=== PATIENT | male | born 1945 | race Hispanic/Latino ===

== ENCOUNTER 2020-08-14 17:55 | Emergency (ER) | payer MEDICARE ==
[~2020-08-14] VITALS: Ht 162.6 cm; Wt 60.3 kg
--- NOTE | 2020-08-14 18:06 | Emergency Department Note ---
History of Present Illnes History of Present Illness Chief Complaint: General Medicine Complaints History of Present Illness This is a 75 year old male presents to the ED after he tripped and fell onto his face with resultant R chest wall pain. Denies LOC or n/v . Onset (how long ago): minute(s) Radiation: Reports non-radiation Severity: moderate Onset quality: sudden Duration (how long): hour(s) Timing of current episode: constant Progression: worsening Chronicity: new Context: Reports trauma/injury Relieving factors: rest Exacerbating factors: movement Associated symptoms: Reports chest pain Treatments prior to arrival: none Past Medical/Family History Physician Review I have reviewed the patient's past medical and family history. Any updates have been documented here. Past Medical History Recent Fever: No Clinical Suspicion of Infectio: No New/Unexplained Change in Ment: No Past Medical History: None Past Surgical History: None Social History Smoking Cessation: Never Smoker Alcohol Use: None Any Illegal Drug Use: No Review of Systems Review of Systems Constitutional: Reports no symptoms EENTM: Reports no symptoms Cardiovascular: Reports chest pain Respiratory: Reports no symptoms Gastrointestinal: Reports no symptoms Genitourinary: Reports no symptoms Musculoskeletal: Reports no symptoms Integumentary: Reports no symptoms Neurological: Reports no symptoms Psychological: Reports no symptoms Endocrine: Reports no symptoms Hematological/Lymphatic: Reports no symptoms Physical Exam Related Data Allergies: Coded Allergies: amoxicillin (Verified Allergy, Intermediate, rash, 08/14/20) Triage Vital Signs Vital Signs Date Time Temp Pulse Resp B/P (MAP) Pulse Ox O2 Delivery O2 Flow Rate FiO2 08/14/20 18:00 97.8 73 17 179/83 100 Room Air Vital signs reviewed: Yes Physical Exam CONSTITUTIONAL Constitutional: Present well-developed, Present well-nourished HENT HENT: Present other (1 CM R ear laceration) HENT L/R: Present left ext ear normal, Present right ext ear normal EYES Eyes: Reports PERRL, Reports conjunctivae normal NECK Neck: Present ROM normal PULMONARY Pulmonary: Present chest tenderness (Right sided wall) CARDIOVASCULAR Cardiovascular: Present regular rhythm, Present heart sounds normal, Present capillary refill normal, Present normal rate GASTROINTESTINAL Abdominal: Present soft, Present nontender, Present bowel sounds normal GENITOURINARY Genitourinary: Present exam deferred SKIN Skin: Present warm, Present dry MUSCULOSKELETAL Musculoskeletal: Present ROM normal NEUROLOGICAL Neurological: Present alert, Present oriented x 3, Present no gross motor or sensory deficits PSYCHOLOGICAL Psychological: Present mood/affect normal, Present judgement normal Results Laboratory Lab results reviewed: Yes Laboratory comments Laboratory Tests Test 08/14/20 22:13 White Blood Count 9.23 x10e3/uL (4.8-10.8) Red Blood Count 4.10 x10e6/uL (4.3-5.7) Hemoglobin 13.1 g/dL (14.0-18.0) Hematocrit 38.4 % (38.2-49.6) Mean Corpuscular Volume 93.7 fL (81-99) Mean Corpuscular Hemoglobin 32.0 pg (28-32) Mean Corpuscular Hemoglobin Concent 34.1 g/dL (31-35) Red Cell Distribution Width 12.7 % (11.7-14.4) Platelet Count 205 x10e3/uL (140-360) Neutrophils (%) (Auto) 75.5 % (38.7-80.0) Lymphocytes (%) (Auto) 13.3 % (18.0-39.1) Monocytes (%) (Auto) 10.4 % (4.4-11.3) Eosinophils (%) (Auto) 0.4 % (0.0-6.0) Basophils (%) (Auto) 0.2 % (0.0-1.0) Neutrophils # (Auto) 7.0 (2.1-6.9) Lymphocytes # (Auto) 1.2 (1.0-3.2) Monocytes # (Auto) 1.0 (0.2-0.8) Eosinophils # (Auto) 0.0 (0.0-0.4) Basophils # (Auto) 0.0 (0.0-0.1) Absolute Immature Granulocyte (auto 0.02 x10e3/uL (0-0.1) Sodium Level 132 mmol/L (136-145) Potassium Level 4.1 mmol/L (3.5-5.1) Chloride Level 97 mmol/L (98-107) Carbon Dioxide Level 27 mmol/L (22-29) Anion Gap 12.1 mmol/L (8-16) Blood Urea Nitrogen 14 mg/dL (7-26) Creatinine 1.37 mg/dL (0.72-1.25) Estimat Glomerular Filtration Rate 51 ML/MIN (60-) BUN/Creatinine Ratio 10 (6-25) Glucose Level 91 mg/dL (74-118) Calcium Level 8.7 mg/dL (8.4-10.2) Total Bilirubin 0.6 mg/dL (0.2-1.2) Aspartate Amino Transf (AST/SGOT) 33 IU/L (5-34) Alanine Aminotransferase (ALT/SGPT) 19 IU/L (0-55) Alkaline Phosphatase 97 IU/L (40-150) Total Protein 7.3 g/dL (6.5-8.1) Albumin 4.3 g/dL (3.5-5.0) Globulin 3.0 g/dL (2.3-3.5) Albumin/Globulin Ratio 1.4 (0.8-2.0) Imaging Imaging results reviewed: Yes Impressions [place] [address] Patient Name: JONO DUQUE MR #: [id number] : 1945 Age/Sex: 75/M Req #: [id number] Adm Physician: Ordered by: ROSCOE MEDINA DO Report #: [id number] Location: ER Room/Bed: Procedure: [id number] CT/CT BRAIN WO Exam Date: 08/14/20 Exam Time: 0 REPORT STATUS: Signed History: Trauma Comparison studies: None Technique: Axial images were obtained from the skull base to the vertex. Coronal and sagittal reconstructions obtained from the axial data. Dose modulation, iterative reconstruction, and/or weight based adjustment of the mA/kV was utilized to reduce the radiation dose to as low as reasonably achievable. Intravenous contrast: None Findings: Scalp/skull: No abnormalities. No fractures, blastic or lytic lesions. Extra-axial spaces: No masses. No fluid collections. Brain sulci: Appropriate for age. Ventricles: Normal in size and configuration. No hydrocephalus. Parenchyma: No abnormal densities. No masses, hemorrhage, acute or chronic cortical vascular insults. Sellar/suprasellar region: No abnormalities Craniocervical junction: Patent foramen magnum. No Chiari one malformation. Incidental findings: None. IMPRESSION: No abnormalities. Signed by: Dr. Iker Tidwell M.D. on 08/14/2020 8:22 PM Dictated By: IKER TIDWELL MD, MD 21 Transcribed By: PHILLIP on 08/14/202021 COPY TO: ROSCOE MEDINA DO~ [place] [address] Patient Name: JONO DUQUE MR #: [id number] : 1945 Age/Sex: 75/M Req #: [id number] Adm Physician: Ordered by: ROSCOE MEDINA DO Report #: [id number] Location: ER Room/Bed: Procedure: [id number] CT/CT CERVICAL SPINE WO Exam Date: 08/14/20 Exam Time: 1849 REPORT STATUS: Signed History: Trauma Comparison studies: None Technique: Axial images were obtained through the cervical region.. Coronal and sagittal images reconstructed from the axial data. Dose modulation, iterative reconstruction, and/or weight based adjustment of the mA/kV was utilized to reduce the radiation dose to as low as reasonably achievable. Intravenous contrast: None Findings: Soft tissues: Incidental atherosclerotic calcifications in the aortic arch. Atlantoaxial articulation: Intact. Alignment: Straightening of the usual lordosis is centered at C4-5. No scoliosis. Cervicomedullary junction: No abnormalities. The foramen magnum is patent. Vertebrae: Bones mildly demineralized. No infection or neoplasm. Degenerative changes: * Mildly degenerated disc at C3-4, moderate from C4 to C7. * Facet arthrosis throughout the cervical region, worse on the left at C2-3 and bilaterally at C7-T1. * Mild spinal canal stenosis from C4 to C6 due to disc osteophyte complexes. * Foraminal stenosis, moderate right at C3-4, bilaterally at C4-5, on the right at C5-6 and C6-7 due to facet and uncoarthrosis. IMPRESSION: 1. No acute abnormalities. 2. Specifically, no fractures or subluxations. 3. Cannot adequately evaluate for ligament, spinal cord and or vascular abnormalities. 4. Degenerative changes as described Signed by: Dr. Iker Tidwell M.D. on 08/14/2020 8:25 PM Dictated By: IKER TIDWELL MD, MD 24 Transcribed By: PHILLIP on 08/14/202024 COPY TO: ROSCOE MEDINA DO~ [place] [address] Patient Name: JONO DUQUE MR #: [id number] : 1945 Age/Sex: 75/M Req #: [id number] [facility] Physician: Ordered by: ROSCOE MEDINA DO Report #: [id number] Location: ER Room/Bed: Procedure: [id number] CT/CT ABDOMEN/PELVIS WO Exam Date: 08/14/20 Exam Time: 1850 REPORT STATUS: Signed EXAM: CT Chest, Abdomen and Pelvis without contrast INDICATION: Status post fall. COMPARISON: None. TECHNIQUE: Chest, abdomen and pelvis were scanned utilizing a multidetector helical scanner from the lung apex to the pubic symphysis after administration of IV contrast. Coronal and sagittal reformations were obtained. Routine protocol was performed. Scan was performed when during portal venous phase. IV CONTRAST: 100 mL of Isovue 370 ORAL CONTRAST: None COMPLICATIONS: None RADIATION DOSE: Total DLP: 1564.74 mGy*cm Estimated effective dose: (DLP x 0.015 x size factor) mSv CTDIvol has been reviewed. It is below the limits set by the Radiation Protocol Committee (RPC). Dose modulation, iterative reconstruction, and/or weight based adjustment of the mA/kV was utilized to reduce the radiation dose to as low as reasonably achievable. FINDINGS: LINES and TUBES: None. LUNGS AND AIRWAYS: No focal consolidation or suspicious pulmonary nodule/mass. There is a solitary pleural-based bulla in the left lower lobe. Airways are normal. PLEURA: The pleural spaces are clear. HEART AND MEDIASTINUM: The thyroid gland is normal. No mediastinal, hilar or axillary lymphadenopathy. The heart is mildly enlarged with atherosclerotic calcification of the coronary vessels. There is no pericardial effusion. HEPATOBILIARY: There are multiple scattered too small to characterize hypodensities in the liver, likely benign. No biliary ductal dilation. GALLBLADDER: There are stones in the gallbladder. No wall thickening. SPLEEN: No splenomegaly. PANCREAS: No focal masses or ductal dilatation. ADRENALS: No adrenal nodules KIDNEYS/URETERS: No hydronephrosis. No cystic or solid mass lesions. 6 mm nonobstructive stone in the inferior pole of the right kidney. GI TRACT: No abnormal distention, wall thickening, or evidence of bowel obstruction. There are diverticula within the colon without evidence of diverticulitis. Appendix is normal. PELVIC ORGANS/BLADDER: Unremarkable. LYMPH NODES: No lymphadenopathy. VESSELS: Scattered mild arterial vascular calcifications. PERITONEUM / RETROPERITONEUM: Small amount of free fluid (47 Hounsfield unit) along the posterior inferior border of the right hepatic lobe. BONES: There is nondisplaced fracture of the right posterior 10th rib. There are degenerative changes in the spine. Focus of increased sclerosis in the right iliac wing most likely represents a bone island. SOFT TISSUES: Unremarkable. IMPRESSION: 1. Small amount of free fluid along the posterior inferior border of the right hepatic lobe which likely represents small retroperitoneal hematoma. The likely source is the inferior border of the right hepatic lobe, however, this is not well assessed due to lack of intravenous contrast. 2. Nondisplaced fracture of the right posterior 10th rib. 3. Mild cardiomegaly with atherosclerotic calcific and coronary vessels. 4. Nonobstructive right nephrolithiasis. 5. Diverticulosis coli without evidence of active inflammation. 6. Cholelithiasis without evidence of cholecystitis. Signed by: Leatha Calderon MD on 08/14/2020 8:48 PM Dictated By: LEATHA CALDERON MD 47 Transcribed By: PHILLIP on 08/14/202047 COPY TO: ROSCOE MEDINA DO~ Procedures Laceration Laceration: Laceration 1 Site: other (right ear) Side: right Size (cm): 1 Description: linear Depth: simple, single layer Skin layer closed with: other Assessment & Plan Medical Decision Making MDM Diff Dx : Flail chest, pneumothorax, hemothorax, Intracranial brain trauma, SDH, SAH, epidural hematoma, perforated abd viscus Assessment & Plan Final Impression: (1) Ear lobe laceration (2) Retroperitoneal bleed (3) Fracture, rib Depart Disposition: TRANS TO OTHER [facility] ROSCOE MEDINA DO Aug 14, 2020 18:06
[2020-08-14] MEDS ORDERED: HYDROCODONE/APAP 5MG-325MG TAB PO ONE (18:15)
--- NOTE | 2020-08-14 20:25 | Diagnostic Imaging Report ---
History: Trauma Comparison studies: None Technique: Axial images were obtained from the skull base to the vertex. Coronal and sagittal reconstructions obtained from the axial data. Dose modulation, iterative reconstruction, and/or weight based adjustment of the mA/kV was utilized to reduce the radiation dose to as low as reasonably achievable. Intravenous contrast: None Findings: Scalp/skull: No abnormalities. No fractures, blastic or lytic lesions. Extra-axial spaces: No masses. No fluid collections. Brain sulci: Appropriate for age. Ventricles: Normal in size and configuration. No hydrocephalus. Parenchyma: No abnormal densities. No masses, hemorrhage, acute or chronic cortical vascular insults. Sellar/suprasellar region: No abnormalities Craniocervical junction: Patent foramen magnum. No Chiari one malformation. Incidental findings: None. IMPRESSION: No abnormalities. Signed by: Dr. Iker Tidwell M.D. on 08/14/2020 8:22 PM
--- NOTE | 2020-08-14 20:28 | Diagnostic Imaging Report ---
History: Trauma Comparison studies: None Technique: Axial images were obtained through the cervical region.. Coronal and sagittal images reconstructed from the axial data. Dose modulation, iterative reconstruction, and/or weight based adjustment of the mA/kV was utilized to reduce the radiation dose to as low as reasonably achievable. Intravenous contrast: None Findings: Soft tissues: Incidental atherosclerotic calcifications in the aortic arch. Atlantoaxial articulation: Intact. Alignment: Straightening of the usual lordosis is centered at C4-5. No scoliosis. Cervicomedullary junction: No abnormalities. The foramen magnum is patent. Vertebrae: Bones mildly demineralized. No infection or neoplasm. Degenerative changes: * Mildly degenerated disc at C3-4, moderate from C4 to C7. * Facet arthrosis throughout the cervical region, worse on the left at C2-3 and bilaterally at C7-T1. * Mild spinal canal stenosis from C4 to C6 due to disc osteophyte complexes. * Foraminal stenosis, moderate right at C3-4, bilaterally at C4-5, on the right at C5-6 and C6-7 due to facet and uncoarthrosis. IMPRESSION: 1. No acute abnormalities. 2. Specifically, no fractures or subluxations. 3. Cannot adequately evaluate for ligament, spinal cord and or vascular abnormalities. 4. Degenerative changes as described Signed by: Dr. Iker Tidwell M.D. on 08/14/2020 8:25 PM
--- NOTE | 2020-08-14 20:52 | Diagnostic Imaging Report ---
EXAM: CT Chest, Abdomen and Pelvis without contrast INDICATION: Status post fall. COMPARISON: None. TECHNIQUE: Chest, abdomen and pelvis were scanned utilizing a multidetector helical scanner from the lung apex to the pubic symphysis after administration of IV contrast. Coronal and sagittal reformations were obtained. Routine protocol was performed. Scan was performed when during portal venous phase. IV CONTRAST: 100 mL of Isovue 370 ORAL CONTRAST: None COMPLICATIONS: None RADIATION DOSE: Total DLP: 1564.74 mGy*cm Estimated effective dose: (DLP x 0.015 x size factor) mSv CTDIvol has been reviewed. It is below the limits set by the Radiation Protocol Committee (RPC). Dose modulation, iterative reconstruction, and/or weight based adjustment of the mA/kV was utilized to reduce the radiation dose to as low as reasonably achievable. FINDINGS: LINES and TUBES: None. LUNGS AND AIRWAYS: No focal consolidation or suspicious pulmonary nodule/mass. There is a solitary pleural-based bulla in the left lower lobe. Airways are normal. PLEURA: The pleural spaces are clear. HEART AND MEDIASTINUM: The thyroid gland is normal. No mediastinal, hilar or axillary lymphadenopathy. The heart is mildly enlarged with atherosclerotic calcification of the coronary vessels. There is no pericardial effusion. HEPATOBILIARY: There are multiple scattered too small to characterize hypodensities in the liver, likely benign. No biliary ductal dilation. GALLBLADDER: There are stones in the gallbladder. No wall thickening. SPLEEN: No splenomegaly. PANCREAS: No focal masses or ductal dilatation. ADRENALS: No adrenal nodules KIDNEYS/URETERS: No hydronephrosis. No cystic or solid mass lesions. 6 mm nonobstructive stone in the inferior pole of the right kidney. GI TRACT: No abnormal distention, wall thickening, or evidence of bowel obstruction. There are diverticula within the colon without evidence of diverticulitis. Appendix is normal. PELVIC ORGANS/BLADDER: Unremarkable. LYMPH NODES: No lymphadenopathy. VESSELS: Scattered mild arterial vascular calcifications. PERITONEUM / RETROPERITONEUM: Small amount of free fluid (47 Hounsfield unit) along the posterior inferior border of the right hepatic lobe. BONES: There is nondisplaced fracture of the right posterior 10th rib. There are degenerative changes in the spine. Focus of increased sclerosis in the right iliac wing most likely represents a bone island. SOFT TISSUES: Unremarkable. IMPRESSION: 1. Small amount of free fluid along the posterior inferior border of the right hepatic lobe which likely represents small retroperitoneal hematoma. The likely source is the inferior border of the right hepatic lobe, however, this is not well assessed due to lack of intravenous contrast. 2. Nondisplaced fracture of the right posterior 10th rib. 3. Mild cardiomegaly with atherosclerotic calcific and coronary vessels. 4. Nonobstructive right nephrolithiasis. 5. Diverticulosis coli without evidence of active inflammation. 6. Cholelithiasis without evidence of cholecystitis. Signed by: Christiano Orellana MD on 08/14/2020 8:48 PM
--- NOTE | 2020-08-14 20:56 | NUR ---
TRANSFER INITIATED TO [facility], SPOKE TO ELSY HUTCHINS RN
[2020-08-14] MEDS ORDERED: SODIUM CHLORIDE 0.9% 1000ML 1,000 ML IV SCH (21:00)
--- NOTE | 2020-08-14 22:15 | NUR ---
REPORT GIVEN TO [facility] NUMEROLOGIST
[2020-08-14 22:19] LABS: BASOPHILS % 0.2 % (0.0-1.0); EOSINOPHILS % 0.4 % (0.0-6.0); HEMATOCRIT 38.4 % (38.2-49.6); HEMOGLOBIN 13.1 g/dL (14.0-18.0); LYMPHOCYTES # (AUTO) 1.2 (1.0-3.2); LYMPHOCYTES % 13.3 % (18.0-39.1); MEAN CORPUSCULAR HGB CONC 34.1 g/dL (31-35); MEAN CORPUSCULAR VOLUME 93.7 fL (81-99); MONOCYTES % 10.4 % (4.4-11.3); NEUTROPHILS % 75.5 % (38.7-80.0); PLATELET COUNT 205 x10e3/uL (140-360); RED CELL DISTRIBUTION WIDTH 12.7 % (11.7-14.4)
--- NOTE | 2020-08-14 22:25 | NUR ---
PT DEPARTED UNIT WITH NAD NOTED VIA EMS STRETCHER
[2020-08-14 22:34] LABS: ALBUMIN 4.3 g/dL (3.5-5.0); ALBUMIN/GLOBULIN RATIO 1.4 (0.8-2.0); ANION GAP 12.1 mmol/L (8-16); CALCIUM 8.7 mg/dL (8.4-10.2); CREATININE, SERUM 1.37 mg/dL (0.72-1.25); POTASSIUM 4.1 mmol/L (3.5-5.1)
== END 2020-08-14 22:32 | disposition other institution (70) ==
LOC: ER 18:05
DX: S01.311A Laceration without foreign body of right ear, initial encounter (principal); S22.31XA Fracture of one rib, right side, initial encounter for closed fracture; S36.81XA Injury of peritoneum, initial encounter; W01.0XXA Fall on same level from slipping, tripping and stumbling without subsequent striking against object, initial encounter; Y93.01 Activity, walking, marching and hiking; I51.7 Cardiomegaly; K57.90 Diverticulosis of intestine, part unspecified, without perforation or abscess without bleeding; K80.20 Calculus of gallbladder without cholecystitis without obstruction
CPT/HCPCS: 12011; 36415; 70450; 71250; 72125; 74176; 80053; 85025; 99284; J7030